=== PATIENT | female | born 1970 | race Caucasian/White ===

== ENCOUNTER → 2016-12-09 | Outpatient (CLI) | payer MEDICAID ==
[~2016-12-09] MED LIST: BENZTROPINE 1MG1 MG PO; ESTRADIOL1 MG OR; LISINOPRIL 10MG10 MG PO; LOSARTAN POTAS100 MG PO; MIRTAZAPINE15 M3 PO; NEURONTIN800 MG PO; PERCOCET1 TAB PO; PRISTIQ100 MG PO; SEROQUEL100 MG PO; VISTARIL25 MG PO; XANAX 1MG TABLET1 MG PO
--- NOTE | 2016-12-10 06:54 | RADIOLOGY REPORT PS360 ---
MRI-C-SPINE W/O, MRI-3D RENDERING/MYELOGRAM HISTORY: Neck pain with bilateral hand numbness and tingling NECK PAIN ORDERING PHYSICIAN: YESICA GOODEN CRNA PATIENT AGE: 46 years COMPARISON: None TECHNIQUE: Standard multiplanar multiecho sequences are performed without contrast. 3-D MIP and myelographic images are also rendered and reviewed FINDINGS: Normal alignment. Unremarkable craniocervical junction. Mild lower cervical curvature convex left. C2-C3 and C3-C4 are unremarkable. C4-C5: Degenerative disc disease. There is mild uncovertebral hypertrophy with bilateral lateral recess and foraminal narrowing slightly greater on the left with small bilateral disc osteophyte complexes at the uncovertebral region slightly more prominent on the left. C5-C6: Degenerative disc disease with concentric bulging disc and small disc osteophyte complexes at the uncovertebral region bilaterally with mild bilateral lateral recess and foraminal narrowing. C6-C7: Degenerative disc disease with minimal bulging disc. C7-T1: Unremarkable. IMPRESSION: 1. Degenerative disc disease at C4-C5 and C5-C6 with disc osteophyte complexes at the uncovertebral region bilaterally with mild bilateral lateral recess and foraminal narrowing slightly greater on the left at C4-C5. 2. Degenerative disc disease with bulging disc C6-C7. 3. No disc herniation or canal stenosis
== END ==
LOC: RAD 08:51
DX: M54.2 Cervicalgia (principal)

== ENCOUNTER → 2017-01-09 | Outpatient (CLI) | payer MEDICAID ==
[2017-01-09 15:17] LABS: AMPHETAMINES/METAMPHETAMINES NEGATIVE ng/mL (<1000)
[2017-01-22 03:37] LABS: Opiates Negative (Cutoff=100)
== END ==
LOC: LAB 14:34
PROVIDERS: Emergency Medicine
DX: Z79.899 Other long term (current) drug therapy (principal)

== ENCOUNTER → 2017-03-02 | Outpatient (CLI) | payer MEDICAID ==
[2017-03-02 14:54] LABS: AMPHETAMINES/METAMPHETAMINES NEGATIVE ng/mL (<1000)
== END ==
LOC: LAB 14:00
PROVIDERS: Emergency Medicine
DX: Z79.899 Other long term (current) drug therapy (principal)

== ENCOUNTER 2017-04-07 15:43 | Day surgery (SDC) | payer MEDICAID ==
[~2017-04-07] VITALS: Ht 160 cm; Wt 68.0 kg
[2017-04-07 15:50] VITALS: BP 150/105; BP 155/92
[2017-04-07 16:10] VITALS: BP 155/92
[2017-04-07 16:12] VITALS: BP 155/92
--- NOTE | 2017-04-07 16:17 | Procedure Note ---
Procedure detail Date of procedure: 04/07/17 Anesthesiologist: Logan Love Complications: None Pre-procedure diagnosis: Bilateral Occipital neuralgia Post-procedure diagnosis: Same Indications for procedure: Patient's a pleasant 46-year-old white female we've been treating her pain clinic quite some time for several issues. Most recently bilateral occipital neuralgia. She has had axial nerve blocks in the past with significant improvement terms for chronic headache symptoms. She reports today after procedure clinic for bilateral greater occipital nerve blocks. Procedure detail: Details of procedures pain to the patient. The patient taken to procedure room and placed in the sitting position. The occipital area was cleansed using chlorhexidine as a cleansing solution. Using a 25-gauge inch and a half needle 3 mL of 0.25 percent Marcaine +3 mL 1 percent lidocaine and 40 mg of Depo-Medrol was injected over the greater occipital nerve on the RIGHT. The same procedure was carried out on the LEFT greater occipital nerve. Patient noted procedure without difficulty. There complications. Plan and disposition: Patient was reevaluated 10 minutes post procedure. She reports significant improvement terms of her bilateral occipital neuralgia pain. She will return to see us in the pain clinic for further evaluation. at 1617
[2017-04-07 16:18] VITALS: BP 145/99
== END 2017-04-07 16:20 ==
LOC: PM 15:43
PROC: 3E0T33Z Introduction of Anti-inflammatory into Peripheral Nerves and Plexi, Percutaneous Approach (ICD-10-PCS; principal; 2017-04-07)
PROC: 3E0T3BZ Introduction of Anesthetic Agent into Peripheral Nerves and Plexi, Percutaneous Approach (ICD-10-PCS; 2017-04-07)
DX: M54.81 Occipital neuralgia (principal)
CPT/HCPCS: J1030

== ENCOUNTER → 2017-09-23 | Outpatient (CLI) | payer MEDICAID ==
[2017-09-23 16:35] LABS: AMPHETAMINES/METAMPHETAMINES NEGATIVE ng/mL (<1000)
== END ==
LOC: LAB 14:29
PROVIDERS: Emergency Medicine
DX: Z79.899 Other long term (current) drug therapy (principal)

== ENCOUNTER 2017-10-13 15:23 | Day surgery (SDC) | payer MEDICAID ==
[~2017-10-13] VITALS: Ht 160 cm; Wt 59.0 kg
[2017-10-13 15:43] VITALS: BP 155/99
[2017-10-13 16:25] VITALS: BP 155/99
[2017-10-13 16:27] VITALS: BP 155/99
--- NOTE | 2017-10-13 16:33 | Procedure Note ---
Procedure detail Date of procedure: 10/13/17 Anesthesiologist: Logan Love Complications: None Pre-procedure diagnosis: Myofascial pain syndrome Post-procedure diagnosis: Same Indications for procedure: Very pleasant 47-year-old white female that we've been treating for quite some time for chronic myofascial pain syndrome with bilateral trapezius muscles as well as bilateral cervical paraspinous muscles. She presents her procedure clinic today for repeat injection of the bilateral cervical paraspinous as well as bilateral trapezius muscles. Procedure detail: Details of the procedure were explained to the patient. The patient was taken to procedure room and placed in a sitting position. The area over the posterior cervical spine as well as bilateral trapezius muscles was cleansed using chlorhexidine as a cleansing solution. 3 separate markers were placed over the bilateral trapezius muscles as well as 2 separate markers over the bilateral cervical paraspinous muscles. Each marker was injected with 2 mL using a 25- gauge needle and a solution containing 1 percent lidocaine and 0.25 percent Marcaine and 40 mg of Depo-Medrol. Patient tolerated procedure without difficulty. Plan and disposition: Patient was reevaluated 10 minutes post procedure. She did very well. Short-term see us on an as-needed basis. at 1639
[2017-10-13 16:44] VITALS: BP 139/93
== END 2017-10-13 16:45 | disposition home or self-care (01) ==
LOC: PM 15:23
PROC: 3E0233Z Introduction of Anti-inflammatory into Muscle, Percutaneous Approach (ICD-10-PCS; principal; 2017-10-13)
PROC: 3E023BZ Introduction of Anesthetic Agent into Muscle, Percutaneous Approach (ICD-10-PCS; 2017-10-13)
DX: M79.1 Myalgia (principal)
CPT/HCPCS: J1040